=== PATIENT | female | born 1965 | race Two or more races ===

== ENCOUNTER 2024-06-25 03:18 | Emergency (ER) | payer OTHER ==
[~2024-06-25] VITALS: Ht 162.6 cm; Wt 79.4 kg
[2024-06-25 03:31] VITALS: TEMP 98.1
[2024-06-25 05:44] VITALS: BP 122/74; O2SAT 98
== END 2024-06-25 05:45 | disposition home or self-care (01) ==
LOC: ER 03:20
DX: S62.655A Nondisplaced fracture of middle phalanx of left ring finger, initial encounter for closed fracture (principal); V89.2XXA Person injured in unspecified motor-vehicle accident, traffic, initial encounter; Y93.89 Activity, other specified; Y92.488 Other paved roadways as the place of occurrence of the external cause; Y99.8 Other external cause status
CPT/HCPCS: 73130-TC